=== PATIENT | male | born 1955 ===

== ENCOUNTER 2024-09-07 12:30 | Inpatient (IN) | payer OTHER ==
[~2024-09-07] VITALS: Ht 170.2 cm; Wt 66.7 kg
[2024-09-07] MEDS ORDERED: CLONAZEPAM0.5 MG PO (14:29)
[2024-09-07] MEDS ORDERED: BACLOFEN10 MG PO (14:30)
[2024-09-07] MEDS ORDERED: TAMS0.4C PO (14:31)
[2024-09-07] MEDS ORDERED: RESTORIL30 MG PO (14:31)
[2024-09-07] MEDS ORDERED: MOBIC7.5 MG PO (14:31)
[2024-09-07] MEDS ORDERED: AIRDUO RESPICL1 EACH (14:32)
[2024-09-07] MEDS ORDERED: BELBUCA150 MCG BC (14:32)
[2024-09-07] MEDS ORDERED: LIPITOR20 MG (14:33)
[2024-09-07] MEDS ORDERED: NASAL ALLERGY16.9 ML (14:33)
[2024-09-07 14:37] VITALS: BP 141/76
[2024-09-17] MEDS ORDERED: CEFTRIAXONE SODIUM 2,000 MG VIAL ONE (10:01)
[2024-09-17] MEDS ORDERED: BUPIVACAINE HCL/Mpf 0.5% 10ML VIAL ONE (10:02)
[2024-09-17] MEDS ORDERED: LIDOCAINE HCL 1%/EPINEPHRINE 20ML VIAL IJ ONE (10:02)
[2024-09-17] MEDS ORDERED: METRONIDAZOLE/SODIUM CHLORIDE 500 MG/100 ML PIGGYBACK IV ONE (10:02)
[2024-09-17] MEDS ORDERED: MORPHINE SULFATE 4 MG/ML CARTRIDGE IV PRN (12:00)
[2024-09-17] MEDS ORDERED: ONDANSETRON HCL 2 MG/ML VIAL IV PRN (12:00)
[2024-09-17] MEDS ORDERED: RINGERS SOLUTION,LACTATED 1,000 ML IV SCH (12:00)
[2024-09-17] MEDS ORDERED: OxyCODONE HCL 5 MG TABLET (ROXICODONE) PO PRN (12:00)
[2024-09-17] MEDS ORDERED: HYOSCYAMINE SULFATE 0.125 MG TAB.SUBL SL SCH (13:00)
[2024-09-17] MEDS ORDERED: SIMETHICONE 125 MG CAPSULE PO SCH (13:00)
[2024-09-17] MEDS ORDERED: ACETAMINOPHEN 500 MG GEL..CAP PO SCH (14:00)
[2024-09-17] MEDS ORDERED: SUGAMMADEX SODIUM 200 MG/2 ML VIAL IV ONE (14:07)
[2024-09-17] MEDS ORDERED: ENALAPRILAT DIHYDRATE 1.25 MG/ML VIAL IV PRN (14:45)
[2024-09-17] MEDS ORDERED: MORPHINE SULFATE 4 MG/ML VIAL IV ONE (15:00)
[2024-09-17 16:09] LABS: BASO % 0.2 % (0.1-1.2); EOS # 0.02 (0.04-0.54); EOS % 0.1 % (0.7-7.0); LYMPH # 1.52 (1.18-3.74); LYMPH % 9.4 % (19.3-53.1); MEAN PLATELET VOLUME 11.70 fl (9.4-12.4); MONO # 0.98 (0.24-0.82); MONO % 6.1 % (4.7-12.5); NEUT # 13.53 (1.56-6.13); NEUT % 83.8 % (34.0-71.1); RED CELL DISTRIBUTION WIDTH 13.6 % (11.6-14.4)
[2024-09-17] MEDS ORDERED: GABAPENTIN 300 MG CAPSULE PO SCH (17:00)
[2024-09-17] MEDS ORDERED: ATORVASTATIN CALCIUM 20 MG TABLET PO SCH (17:00)
[2024-09-17] MEDS ORDERED: IPRATROPIUM/ALBUTEROL SULFATE 3 ML AMPUL.NEB IH SCH (17:00)
[2024-09-17] MEDS ORDERED: METOCLOPRAMIDE HCL 5 MG/ML VIAL IV SCH (17:00)
[2024-09-17] MEDS ORDERED: FAMOTIDINE/PF 20 MG/2 ML VIAL IV PUSH SCH (21:00)
[2024-09-17] MEDS ORDERED: CIPROFLOXACIN IN 5 % DEXTROSE 200 MG/100 ML PIGGYBAG IV SCH (21:00)
[2024-09-17] MEDS ORDERED: TEMAZEPAM 15 MG CAPSULE PO SCH (21:00)
[2024-09-17 21:39] VITALS: BP 146/76; O2SAT 96
[2024-09-18 01:40] VITALS: BP 122/76; O2SAT 99
[2024-09-18 06:11] LABS: BASO % 0.4 % (0.1-1.2); EOS # 0.08 (0.04-0.54); EOS % 0.7 % (0.7-7.0); LYMPH # 2.26 (1.18-3.74); LYMPH % 18.9 % (19.3-53.1); MEAN PLATELET VOLUME 12.20 fl (9.4-12.4); MONO # 1.38 (0.24-0.82); MONO % 11.5 % (4.7-12.5); NEUT # 8.17 (1.56-6.13); NEUT % 68.2 % (34.0-71.1); RED CELL DISTRIBUTION WIDTH 13.8 % (11.6-14.4)
[2024-09-18 07:04] LABS: BUN CREA RATIO 12.0 (7.0-25.0); CREATININE SERUM 0.93 mg/dL (0.70-1.30); GFR 81.29; GLUCOSE FASTING 88.0 mg/dL (65-100); OSMOLALITY SERUM 286.0 MOSM/KG (275-295)
[2024-09-18 08:36] VITALS: BP 104/65; O2SAT 94
[2024-09-18] MEDS ORDERED: LACTOBACILLUS ACIDOPHILUS 1 CAP CAP PO SCH (09:00)
[2024-09-18] MEDS ORDERED: TAMSULOSIN HCL 0.4 MG CAP PO SCH (09:00)
[2024-09-18] MEDS ORDERED: ENOXAPARIN SODIUM 40 MG/0.4 ML SYRINGE SUBCUTANEO SCH (17:00)
[2024-09-18 17:12] VITALS: BP 115/68; O2SAT 96
[2024-09-18] MEDS ORDERED: BACLOFEN 10 MG TABLET PO SCH (21:00)
[2024-09-19] VITALS: BP 128/70; O2SAT 98
[2024-09-19] MEDS ORDERED: ENOXAPARIN SODIUM 40 MG/0.4 ML SYRINGE SUBCUTANEO SCH (09:00)
[2024-09-19 09:05] VITALS: BP 135/67; O2SAT 95
[2024-09-19] MEDS ORDERED: GABAPENTIN 300 MG CAPSULE PO SCH (13:00)
[2024-09-19 17:22] VITALS: BP 145/83; O2SAT 96
[2024-09-19] MEDS ORDERED: LIDOCAINE 5% 1 PATCH ADH. TOP SCH (21:00)
[2024-09-20 00:54] VITALS: BP 116/71; O2SAT 100
[2024-09-20 06:59] LABS: BASO % 0.1 % (0.1-1.2); EOS # 0.41 (0.04-0.54); EOS % 3.7 % (0.7-7.0); LYMPH # 1.67 (1.18-3.74); LYMPH % 15.0 % (19.3-53.1); MEAN PLATELET VOLUME 11.50 fl (9.4-12.4); MONO # 1.00 (0.24-0.82); MONO % 9.0 % (4.7-12.5); NEUT # 7.97 (1.56-6.13); NEUT % 71.8 % (34.0-71.1); RED CELL DISTRIBUTION WIDTH 13.7 % (11.6-14.4)
[2024-09-20] MEDS ORDERED: INTESTINEX680 M1 PO (07:09)
[2024-09-20] MEDS ORDERED: CIPRO500 MG PO (07:09)
[2024-09-20] MEDS ORDERED: METRONIDAZOLE500 MG PO (07:09)
[2024-09-20] MEDS ORDERED: PERCOCET 5-3251 EACH PO (07:10)
[2024-09-20] MEDS ORDERED: NEURONTIN300 MG PO (07:10)
[2024-09-20 16:00] VITALS: BP 137/80; O2SAT 98
== END 2024-09-20 19:23 | disposition home or self-care (01) | DRG 331 ==
LOC: O/R 09-17 10:19 → SURH 09-17 12:30
PROVIDERS: ADMIT Surgery; ATTEND Surgery
PROC: 0DBP4ZZ Excision of Rectum, Percutaneous Endoscopic Approach (ICD-10-PCS; 2024-09-17)
PROC: 0TN74ZZ Release Left Ureter, Percutaneous Endoscopic Approach (ICD-10-PCS; 2024-09-17)
PROC: 0DNW4ZZ Release Peritoneum, Percutaneous Endoscopic Approach (ICD-10-PCS; 2024-09-17)
PROC: 0DJD8ZZ Inspection of Lower Intestinal Tract, Via Natural or Artificial Opening Endoscopic (ICD-10-PCS; 2024-09-17)
PROC: 0DTN4ZZ Resection of Sigmoid Colon, Percutaneous Endoscopic Approach (ICD-10-PCS; principal; 2024-09-17 16:00)
DX: K57.20 Diverticulitis of large intestine with perforation and abscess without bleeding (principal)